=== PATIENT | male | born 1950 | race Two or more races ===

== ENCOUNTER → 2019-10-19 | Emergency (ER) | payer OTHER ==
[~2019-10-19] VITALS: Ht 177.8 cm; Wt 89.8 kg
[~2019-10-19] MED LIST: FLONASE ALLERG9.9 ML NASAL; ORASEP SPRAY30 ML MM; ZITHROMAX500 MG PO; ZYNCOF 20-400120 ML PO
== END | disposition home or self-care (01) ==
LOC: ER 01:07
DX: J06.9 Acute upper respiratory infection, unspecified (principal)